=== PATIENT | female | born 1980 | race Two or more races ===

== ENCOUNTER 2023-06-27 01:42 | Emergency (ER) | payer BC ==
[~2023-06-27] VITALS: Ht 177.8 cm; Wt 86.4 kg
[2023-06-27 01:53] VITALS: TEMP 98.6
[2023-06-27] MEDS ORDERED: acetaminophen 325mg tablet PO ONE (02:05)
[2023-06-27] MEDS ORDERED: ibuprofen tablet 400 MG TABLET PO ONE (02:05)
[2023-06-27] MEDS ORDERED: ondansetron 4mg rapidly disintigrating tab PO ONE (02:05)
[2023-06-27] MEDS ORDERED: ONDA8TAB13 PO (02:13)
[2023-06-27] MEDS ORDERED: NIRM1TAB PO (02:13)
[2023-06-27] MEDS ORDERED: LIDOcaine Viscous 15ml cup MM ONE (02:40)
[2023-06-27] MEDS ORDERED: LIDO20SO16 PO (02:41)
[2023-06-27 02:59] VITALS: BP 145/70; PULSE 80; RESP 17; O2SAT 98
== END 2023-06-27 03:00 | disposition home or self-care (01) ==
LOC: ER 01:44
DX: U07.1 COVID-19 (principal); B34.9 Viral infection, unspecified; Z79.899 Other long term (current) drug therapy
CPT/HCPCS: 36415; 87081; 87811; 99284